=== PATIENT | female | born 2000 | race Caucasian/White ===

== ENCOUNTER 2022-05-17 23:38 | Emergency (ER) | payer SELFPAY ==
[~2022-05-17] VITALS: Ht 175.3 cm; Wt 68.0 kg
--- NOTE | 2022-05-17 23:46 | NUR ---
Patient is able to walk to the restroom with steady gait
[2022-05-18] MEDS ORDERED: IV NORMAL SALINE 500 ML BAG IV ONE
--- NOTE | 2022-05-18 00:08 | NUR ---
Patient taken to CT by david Dillon
[2022-05-18 00:11] LABS: HEMATOCRIT 41.4 % (31.2-41.9); MEAN CORPUSCULAR HEMOGLOBIN 30.5 uug (24.7-32.8); MEAN CORPUSCULAR VOLUME 91.1 fL (75.5-95.3); PLATELET COUNT (AUTO) 259 K/uL (179-408)
[2022-05-18 00:16] LABS: *AMPHETAMINE, URINE NEGATIVE (NEGATIVE); *CANNABINOID, URINE NEGATIVE (NEGATIVE); *COCCAINE, URINE POSITIVE (NEGATIVE); *OPIATE, URINE NEGATIVE (NEGATIVE); *PHENCYCLIDINE SCREEN,URINE NEGATIVE (NEGATIVE); *URINE HCG, QUAL NEGATIVE (NEGATIVE)
[2022-05-18 00:17] LABS: CARBON DIOXIDE 29 mmol/L (21-32); CHLORIDE 107 mmol/L (98-107); CREATININE 1.2 mg/dL (0.6-1.3); GLUCOSE 93 mg/dL (74-106); POTASSIUM 3.6 mmol/L (3.5-5.1); UREA NITROGEN, BLOOD 13 mg/dL (7-18)
--- NOTE | 2022-05-18 00:24 | NUR ---
patient is back from CT
[2022-05-18] MEDS ORDERED: LORAZEPAM 2 MG/1 ML VIAL IV ONE (02:15)
[2022-05-18] MEDS ORDERED: LORAZEPAM 2 MG/1 ML VIAL ONE (02:15)
--- NOTE | 2022-05-18 05:06 | NUR ---
Patient discharged to home in stable condition. Written and verbal after care instructions given. Patient verbalizes understanding of instructions. Stressed follow up or return to ER for worsening s/s. Patient is a/ox4, NAD noted.
[2022-05-18 05:09] VITALS: BP 110/67
== END 2022-05-18 05:10 | disposition home or self-care (01) ==
LOC: ER 23:40
DX: R07.9 Chest pain, unspecified (principal); R00.2 Palpitations; R51.9 Headache, unspecified
CPT/HCPCS: 70450; 71045; 80048; 84703; 83735; 85025; 84484 ×2; 36415 ×2; 93005 ×2; 80307; 99284; 96374; 96361; J2060; J7040; A4663

== ENCOUNTER 2022-11-17 03:07 | Emergency (ER) | payer BC ==
[~2022-11-17] VITALS: Ht 170.2 cm; Wt 64.4 kg
--- NOTE | 2022-11-17 03:30 | NUR ---
Patient taken to the bathroom via wheelchair. Patient aox4, clear speech, steady gait. No signs of distress noted.
--- NOTE | 2022-11-17 03:31 | NUR ---
Dr. Alvarez evaluating patient at bedside. MSE in progress.
[2022-11-17] MEDS ORDERED: LORAZEPAM 0.5 MG TABLET PO ONE ×2 (03:45→04:30)
[2022-11-17] MEDS ORDERED: LORAZEPAM 1 MG TABLET ONE ×2 (03:50→04:36)
[2022-11-17 03:54] LABS: HEMATOCRIT 40.6 % (31.2-41.9); MEAN CORPUSCULAR HEMOGLOBIN 31.3 uug (24.7-32.8); MEAN CORPUSCULAR VOLUME 90.5 fL (75.5-95.3); PLATELET COUNT (AUTO) 326 K/uL (179-408)
[2022-11-17 04:16] LABS: POTASSIUM 2.9 mmol/L (3.5-5.1)
[2022-11-17] MEDS ORDERED: POTASSIUM BICARBONATE/CIT AC 25 MEQ TABLET.EFF PO ONE (04:30)
[2022-11-17] MEDS ORDERED: POTASSIUM BICARBONATE/CIT AC 25 MEQ TABLET.EFF ONE (04:35)
--- NOTE | 2022-11-17 04:37 | NUR ---
Patient anxious and restless, given additional order Ativan 1mg PO per Dr. Alvarez.
--- NOTE | 2022-11-17 04:57 | NUR ---
Patient resting, eyes closed, resting comfortably in bed. No signs of distress noted.
[2022-11-17 05:22] LABS: MAGNESIUM 2.1 mg/dL (1.8-2.4)
[2022-11-17] MEDS ORDERED: LORA0.5T48 PO (05:50)
--- NOTE | 2022-11-17 06:30 | NUR ---
Patient awake, aox4, steady gait.
--- NOTE | 2022-11-17 06:45 | NUR ---
Patient discharged to home in stable condition. Written and verbal after care instructions given. Patient verbalizes understanding of instructions. Stressed follow up or return to ER for worsening s/s. Instructed patient not to drive. Printed copy of labs. Given medication printed prescription.
[2022-11-17 07:01] VITALS: BP 115/75
== END 2022-11-17 07:01 | disposition home or self-care (01) ==
LOC: ER 03:14
DX: F41.9 Anxiety disorder, unspecified (principal)
CPT/HCPCS: 36415; 83735; 84484; 85025; 93005; A4663